=== PATIENT | female | born 1945 | race Caucasian/White ===

== ENCOUNTER 2018-08-18 01:57 | Inpatient (IN) | payer MEDICARE, OTHER ==
[2018-08-18] MEDS: NITROGLYCERIN 50 MG/D5W (PMX) 250 ML IV (02:19)
[2018-08-18 02:20] LABS: WHITE BLOOD COUNT 16.6 10^3/ul (4.8-10.8)
[2018-08-18 02:20] LABS: ADD MAN DIFF? NO; BASOPHIL # 0.1 10^3/ul (0.0-0.1); BASOPHILS % 0.3 % (0.0-2.0); EOSINOPHILS # 0.2 10^3/ul (0.0-0.5); EOSINOPHILS % 0.9 % (0.0-7.0); HEMATOCRIT 43.3 % (37.0-47.0); HEMOGLOBIN 13.6 g/dl (12.0-16.0); LYMPHOCYTES # 3.2 10^3/ul (0.8-2.9); LYMPHOCYTES % 19.2 % (15.0-51.0); MEAN CORPUSCULAR HEMOGLOBIN 25.7 pg (29.0-33.0); MEAN CORPUSCULAR HGB CONC 31.4 g/dl (32.0-37.0); MEAN CORPUSCULAR VOLUME 81.7 fl (82.0-101.0); MEAN PLATELET VOLUME 11.5 fl (7.4-10.4); MONOCYTE # 0.7 10^3/ul (0.3-0.9); MONOCYTES % 4.4 % (0.0-11.0); NEUTROPHIL # 12.4 10^3/ul (1.6-7.5); NEUTROPHILS % 74.7 % (39.0-77.0); PLATELET COUNT 264 10^3/UL (140-415); RED CELL DISTRIBUTION WIDTH 14.4 % (11.5-14.5)
[2018-08-18 02:37] LABS: ALANINE AMINOTRANSFERASE 24 IU/L (13-69); ALBUMIN 4.3 g/dl (3.3-4.9); ALBUMIN/GLOBULIN RATIO 1.34; ALKALINE PHOSPHATASE 107 IU/L (42-121); ANION GAP 11 (5-13); ASPARTATE AMINO TRANSFERASE 32 IU/L (15-46); BILIRUBIN,INDIRECT 0.6 mg/dl (0-1.1); BILIRUBIN,TOTAL 0.6 mg/dl (0.2-1.3); BLOOD UREA NITROGEN 13 mg/dl (7-20); CALCIUM 9.1 mg/dl (8.4-10.2); CARBON DIOXIDE 22 mmol/L (21-31); CHLORIDE 107 mmol/L (97-110); CREATININE 0.79 mg/dl (0.44-1.00); GLUCOSE 295 mg/dl (70-220); INR 0.97; PARTIAL THROMBOPLASTIN TIME 23.7 Sec (23.0-35.0); POTASSIUM 4.8 mmol/L (3.5-5.1); SODIUM 140 mmol/L (135-144); TOTAL PROTEIN 7.5 g/dl (6.1-8.1)
[2018-08-18 02:49] LABS: B-TYPE NATRIURETIC PEPTIDE 3960 PG/ML (0-125); TROPONIN-I < 0.012 ng/ml (0.000-0.120)
[2018-08-18] MEDS: DILTIAZEM 25 MG INJ IV ×2 (02:56→03:19)
[2018-08-18] MEDS ORDERED: ONDANSETRON 4 MG INJ IV (03:00)
[2018-08-18] MEDS ORDERED: ACETAMINOPHEN 650MG/20.3ML CUP PO (03:00)
[2018-08-18] MEDS: FUROSEMIDE 40 MG INJ IV ×3 (03:07→18:58)
[2018-08-18 03:11] LABS: Allen Test N; Arterial Base Excess -1.4 mmol/L (-3.0-3); Arterial Blood Gas Oxygen Sat 99.4 mmHG (95.0-100.0); Arterial COHb 0.3 % (0.0-3.0); Arterial Fraction of Oxyhgb 98.7 % (93.0-99.0); Arterial HCO3 22.8 mmol/L (22.0-26.0); Arterial MetHb 0.4 % (0.0-1.5); Arterial pCO2 36.9 mmhg (35-45); Blood Gas IEPAP 15/5; Blood Gas PS 10; MODE MASK - BIPAP; Site Right Brachial
[2018-08-18 04:28] LABS: FREE T4 (FREE THYROXINE) 1.13 ng/dl (0.78-2.44)
[2018-08-18 04:29] LABS: FREE T3 4.31 pg/ml (2.77-5.27)
[2018-08-18 06:12] LABS: LACTIC ACID 2.7 mmol/L (0.5-2.0)
[2018-08-18] MEDS: METOPROLOL 5 MG INJ IV (07:57)
[2018-08-18] MEDS: PANTOPRAZOLE 40 MG INJ IV (07:57)
[2018-08-18] MEDS: LISINOPRIL 10 MG TAB PO (08:55)
[2018-08-18 10:21] LABS: CREATINE KINASE 40 IU/L (23-200)
[2018-08-18 10:34] LABS: CK INDEX 2.7; CK-MB 1.06 ng/ml (0.0-2.4)
[2018-08-18 10:41] LABS: TROPONIN-I 0.145 ng/ml (0.000-0.120)
[2018-08-18] MEDS: ENOXAPARIN 80 MG/0.8 ML SYG SC ×2 (11:01→20:48)
[2018-08-18] MEDS: METOPROLOL 25 MG TAB PO ×2 (12:30→15:43)
[2018-08-18 14:56] LABS: CREATINE KINASE 45 IU/L (23-200)
[2018-08-18 15:10] LABS: CK INDEX 2.2; CK-MB 0.97 ng/ml (0.0-2.4)
[2018-08-18 15:18] LABS: TROPONIN-I 0.157 ng/ml (0.000-0.120)
[2018-08-18] MEDS: DIGOXIN 500 MCG INJ IV ×2 (15:45→18:58)
[2018-08-18] MEDS: METOPROLOL 50 MG TAB PO (20:46)
[2018-08-18 20:47] LABS: CREATINE KINASE 48 IU/L (23-200)
[2018-08-18 20:59] LABS: CK INDEX 2.3; CK-MB 1.12 ng/ml (0.0-2.4)
[2018-08-18 21:01] LABS: TROPONIN-I 0.133 ng/ml (0.000-0.120)
[2018-08-19 06:22] LABS: LACTIC ACID 1.1 mmol/L (0.5-2.0)
[2018-08-19] MEDS: PANTOPRAZOLE (EC) 40 MG TAB PO (06:27)
[2018-08-19] MEDS: FUROSEMIDE 40 MG INJ IV ×2 (06:28→17:04)
[2018-08-19] MEDS: LISINOPRIL 10 MG TAB PO (08:58)
[2018-08-19] MEDS: METOPROLOL 50 MG TAB PO (08:59)
[2018-08-19] MEDS: ENOXAPARIN 80 MG/0.8 ML SYG SC (09:09)
[2018-08-19] MEDS ORDERED: GLUCOSE GEL 15 GRAM TUBE BUCCAL (11:00)
[2018-08-19] MEDS ORDERED: GLUCAGON 1 MG INJ IM (11:00)
[2018-08-19] MEDS ORDERED: GLUCOSE GEL 15 GRAM TUBE PO ×2 (11:00)
[2018-08-19] MEDS ORDERED: DEXTROSE 50% 50 ML SYRINGE IV ×2 (11:00)
[2018-08-19] MEDS: INSULIN ASPART [NOVOLOG] 3 ML PEN SC ×3 (12:00→21:00)
[2018-08-19] MEDS: SOD CHLORIDE 0.9% 100 ML (12:06)
[2018-08-19] MEDS: IOHEXOL 300MG/ML 150 ML BTL (12:07)
[2018-08-19 12:40] LABS: IRON 36 ug/dl (35-150)
[2018-08-19 12:50] LABS: % IRON SATURATION 12 % SAT (22-52); TOTAL IRON BINDING CAPACITY 289 ug/dl (241-421)
[2018-08-19 13:30] LABS: HEPATITIS C VIRAL ANTIBODY NEGATIVE (NEGATIVE)
[2018-08-19] MEDS: ACCU-CHEK XX ×2 (14:00→21:24)
[2018-08-19 14:07] LABS: FERRITIN 82.5 ng/ml (11.1-264.0)
[2018-08-19] MEDS ORDERED: hydrALAzine 20 MG INJ IV (17:30)
[2018-08-19 18:10] LABS: HEPATITIS B SURFACE ANTIGEN NEGATIVE (NEGATIVE)
[2018-08-19] MEDS: DIGOXIN 500 MCG INJ IV ×2 (18:12→18:13)
[2018-08-19] MEDS: LISINOPRIL 20 MG TAB PO ×2 (18:13→21:05)
[2018-08-19] MEDS: FERROUS GLUCONATE (EC) 325 MG TAB PO (19:07)
[2018-08-19] MEDS: hydrALAzine 20 MG INJ IV (19:34)
[2018-08-19] MEDS ORDERED: LISINOPRIL 10 MG TAB PO (21:00)
[2018-08-19] MEDS: METOPROLOL (XL) 50 MG TAB PO (21:06)
[2018-08-20] MEDS: ACCU-CHEK XX ×4 (02:00→21:23)
[2018-08-20 06:51] LABS: ALANINE AMINOTRANSFERASE 22 IU/L (13-69); ALBUMIN 3.9 g/dl (3.3-4.9); ALKALINE PHOSPHATASE 100 IU/L (42-121); ANION GAP 9 (5-13); ASPARTATE AMINO TRANSFERASE 22 IU/L (15-46); BILIRUBIN,INDIRECT 0.5 mg/dl (0-1.1); BILIRUBIN,TOTAL 0.5 mg/dl (0.2-1.3); BLOOD UREA NITROGEN 25 mg/dl (7-20); CALCIUM 9.7 mg/dl (8.4-10.2); CARBON DIOXIDE 31 mmol/L (21-31); CHLORIDE 105 mmol/L (97-110); CREATININE 0.76 mg/dl (0.44-1.00); GLUCOSE 122 mg/dl (70-220); POTASSIUM 3.3 mmol/L (3.5-5.1); SODIUM 145 mmol/L (135-144); TOTAL PROTEIN 6.9 g/dl (6.1-8.1)
[2018-08-20] MEDS: FUROSEMIDE 40 MG INJ IV ×2 (07:01→18:37)
[2018-08-20] MEDS: PANTOPRAZOLE (EC) 40 MG TAB PO (07:02)
[2018-08-20] MEDS: INSULIN ASPART [NOVOLOG] 3 ML PEN SC ×4 (08:00→21:00)
[2018-08-20] MEDS: SPIRONOLACTONE 25 MG TAB PO (08:57)
[2018-08-20] MEDS: LISINOPRIL 20 MG TAB PO ×3 (08:59→21:25)
[2018-08-20] MEDS: METOPROLOL (XL) 50 MG TAB PO (08:59)
[2018-08-20] MEDS: FERROUS GLUCONATE (EC) 325 MG TAB PO (08:59)
[2018-08-20] MEDS: hydrALAzine 20 MG INJ IV (12:08)
[2018-08-20] MEDS: DIGOXIN 0.125 MG TAB PO (13:26)
[2018-08-20] MEDS: METOPROLOL (XL) 25 MG TAB PO (13:26)
[2018-08-20] MEDS ORDERED: DILTIAZEM 25 MG INJ IV (13:30)
[2018-08-20] MEDS: POTASSIUM CHLORIDE (SR) 20 MEQ TAB PO (14:31)
[2018-08-20] MEDS ORDERED: METOPROLOL (XL) 25 MG TAB PO (21:00)
[2018-08-20] MEDS: METOPROLOL (XL) 100 MG TAB PO (21:24)
[2018-08-21] MEDS: ACCU-CHEK XX ×3 (02:00→14:00)
[2018-08-21] MEDS: FUROSEMIDE 40 MG INJ IV ×2 (05:50→18:06)
[2018-08-21] MEDS: PANTOPRAZOLE (EC) 40 MG TAB PO (05:50)
[2018-08-21 06:22] LABS: ANION GAP 10 (5-13); BLOOD UREA NITROGEN 30 mg/dl (7-20); CALCIUM 9.8 mg/dl (8.4-10.2); CARBON DIOXIDE 30 mmol/L (21-31); CHLORIDE 103 mmol/L (97-110); GLUCOSE 135 mg/dl (70-220); POTASSIUM 3.5 mmol/L (3.5-5.1); SODIUM 143 mmol/L (135-144)
[2018-08-21] MEDS: INSULIN ASPART [NOVOLOG] 3 ML PEN SC ×4 (08:00→21:00)
[2018-08-21] MEDS: FERROUS GLUCONATE (EC) 325 MG TAB PO (08:18)
[2018-08-21] MEDS: METOPROLOL (XL) 100 MG TAB PO ×2 (08:18→21:10)
[2018-08-21] MEDS: LISINOPRIL 20 MG TAB PO ×2 (08:18→21:09)
[2018-08-21] MEDS: ASPIRIN 81 MG TAB PO (08:19)
[2018-08-21] MEDS: SPIRONOLACTONE 25 MG TAB PO (08:19)
[2018-08-21] MEDS: DIGOXIN 0.125 MG TAB PO (12:17)
[2018-08-21] MEDS: POTASSIUM CHLORIDE 20 MEQ POWDER FOR ORAL SOLN PO (15:44)
[2018-08-21] MEDS: THIAMINE 100 MG TAB PO (15:44)
[2018-08-21] MEDS ORDERED: SALINE 0.65% 45 ML NAS SPRAY NASAL (16:00)
[2018-08-22] MEDS: ACCU-CHEK XX (02:00)
[2018-08-22 05:27] LABS: ADD MAN DIFF? NO
[2018-08-22 05:34] LABS: WHITE BLOOD COUNT 7.4 10^3/ul (4.8-10.8)
[2018-08-22 05:34] LABS: BASOPHILS % 0.5 % (0.0-2.0); EOSINOPHILS # 0.2 10^3/ul (0.0-0.5); EOSINOPHILS % 2.4 % (0.0-7.0); HEMOGLOBIN 13.9 g/dl (12.0-16.0); LYMPHOCYTES # 2.2 10^3/ul (0.8-2.9); LYMPHOCYTES % 29.2 % (15.0-51.0); MEAN CORPUSCULAR HEMOGLOBIN 25.7 pg (29.0-33.0); MEAN CORPUSCULAR HGB CONC 33.1 g/dl (32.0-37.0); MEAN CORPUSCULAR VOLUME 77.6 fl (82.0-101.0); MEAN PLATELET VOLUME 11.9 fl (7.4-10.4); MONOCYTE # 0.7 10^3/ul (0.3-0.9); MONOCYTES % 9.1 % (0.0-11.0); NEUTROPHIL # 4.3 10^3/ul (1.6-7.5); NEUTROPHILS % 58.4 % (39.0-77.0); PLATELET COUNT 219 10^3/UL (140-415); RED BLOOD COUNT 5.41 10^6/ul (4.20-5.40); RED CELL DISTRIBUTION WIDTH 14.7 % (11.5-14.5)
[2018-08-22 05:48] LABS: HEMOGLOBIN A1C 5.7 % (0-5.9)
[2018-08-22] MEDS: FUROSEMIDE 40 MG INJ IV (05:50)
[2018-08-22 06:09] LABS: ALANINE AMINOTRANSFERASE 38 IU/L (13-69); ALBUMIN 4.3 g/dl (3.3-4.9); ALBUMIN/GLOBULIN RATIO 1.59; ALKALINE PHOSPHATASE 91 IU/L (42-121); ANION GAP 13 (5-13); ASPARTATE AMINO TRANSFERASE 37 IU/L (15-46); BILIRUBIN,INDIRECT 0.4 mg/dl (0-1.1); BILIRUBIN,TOTAL 0.4 mg/dl (0.2-1.3); BLOOD UREA NITROGEN 35 mg/dl (7-20); CALCIUM 9.9 mg/dl (8.4-10.2); CARBON DIOXIDE 28 mmol/L (21-31); CHLORIDE 103 mmol/L (97-110); CREATININE 0.89 mg/dl (0.44-1.00); GLUCOSE 135 mg/dl (70-220); MAGNESIUM 2.1 mg/dl (1.7-2.5); POTASSIUM 4.1 mmol/L (3.5-5.1); SODIUM 144 mmol/L (135-144)
[2018-08-22] MEDS: INSULIN ASPART [NOVOLOG] 3 ML PEN SC ×3 (08:00→17:41)
[2018-08-22] MEDS: SPIRONOLACTONE 25 MG TAB PO (08:54)
[2018-08-22] MEDS: FERROUS GLUCONATE (EC) 325 MG TAB PO (08:55)
[2018-08-22] MEDS: THIAMINE 100 MG TAB PO (08:55)
[2018-08-22] MEDS: LISINOPRIL 20 MG TAB PO (08:55)
[2018-08-22] MEDS: ASPIRIN 81 MG TAB PO (08:55)
[2018-08-22] MEDS: METOPROLOL (XL) 100 MG TAB PO (08:55)
[2018-08-22] MEDS: POTASSIUM CHLORIDE 20 MEQ POWDER FOR ORAL SOLN PO (08:56)
[2018-08-22] MEDS: DIGOXIN 0.125 MG TAB PO (14:25)
[2018-08-22] MEDS: FUROSEMIDE 20 MG TAB PO (17:42)
[2018-08-23] MEDS ORDERED: ENOXAPARIN 80 MG/0.8 ML SYG SC (09:00)
[2018-08-24 09:37] LABS: NIL 0.06 IU/mL; QUANTIFERON(R)-TB GOLD NEGATIVE (NEGATIVE); TB-NIL <0.00 IU/mL; TB2-NIL <0.00 IU/mL
== END 2018-08-22 18:34 | disposition home or self-care (01) | DRG 308 ==
LOC: E/R 01:57 → ICU 03:00 → 6WM 21:15
DX: I48.91 Unspecified atrial fibrillation (principal); J96.01 Acute respiratory failure with hypoxia; I50.43 Acute on chronic combined systolic (congestive) and diastolic (congestive) heart failure; E87.2 Acidosis; R04.2 Hemoptysis; I24.9 Acute ischemic heart disease, unspecified; I48.92 Unspecified atrial flutter; I11.0 Hypertensive heart disease with heart failure; I42.9 Cardiomyopathy, unspecified; I16.0 Hypertensive urgency; E55.9 Vitamin D deficiency, unspecified; E78.5 Hyperlipidemia, unspecified; I25.2 Old myocardial infarction; S42.295D Other nondisplaced fracture of upper end of left humerus, subsequent encounter for fracture with routine healing; S42.294D Other nondisplaced fracture of upper end of right humerus, subsequent encounter for fracture with routine healing; D50.0 Iron deficiency anemia secondary to blood loss (chronic); E03.9 Hypothyroidism, unspecified; E04.1 Nontoxic single thyroid nodule
CPT/HCPCS: 36600; 71045; 71260; 76536; 80048; 80053; 80162; 82550; 82553; 82728; 82803; 82962; 83036; 83540; 83605; 83735; 83880; 84439; 84443; 84481; 84484; 85025; 85610; 85730; 86480; 86803; 87040; 87081; 87116; 87340; 93005; 93306; 94660

== ENCOUNTER 2018-11-28 07:53 | Inpatient (IN) | payer MEDICARE, OTHER ==
[2018-11-28 08:34] LABS: ADD MAN DIFF? NO
[2018-11-28 08:46] LABS: BASOPHILS % 0.3 % (0.0-2.0); EOSINOPHILS % 0.1 % (0.0-7.0); HEMATOCRIT 41.6 % (37.0-47.0); HEMOGLOBIN 13.7 g/dl (12.0-16.0); LYMPHOCYTES # 0.8 10^3/ul (0.8-2.9); LYMPHOCYTES % 7.7 % (15.0-51.0); MEAN CORPUSCULAR HEMOGLOBIN 25.5 pg (29.0-33.0); MEAN CORPUSCULAR HGB CONC 32.9 g/dl (32.0-37.0); MEAN CORPUSCULAR VOLUME 77.5 fl (82.0-101.0); MONOCYTE # 0.5 10^3/ul (0.3-0.9); MONOCYTES % 5.2 % (0.0-11.0); NEUTROPHILS % 86.1 % (39.0-77.0); PLATELET COUNT 193 10^3/UL (140-415); RED BLOOD COUNT 5.37 10^6/ul (4.20-5.40); RED CELL DISTRIBUTION WIDTH 14.4 % (11.5-14.5)
[2018-11-28 08:46] LABS: WHITE BLOOD COUNT 10.5 10^3/ul (4.8-10.8)
[2018-11-28 08:55] LABS: ALANINE AMINOTRANSFERASE 23 IU/L (13-69); ALBUMIN 4.7 g/dl (3.3-4.9); ALBUMIN/GLOBULIN RATIO 1.42; ALKALINE PHOSPHATASE 121 IU/L (42-121); ANION GAP 12 (5-13); ASPARTATE AMINO TRANSFERASE 39 IU/L (15-46); BILIRUBIN,INDIRECT 0.6 mg/dl (0-1.1); BILIRUBIN,TOTAL 0.6 mg/dl (0.2-1.3); BLOOD UREA NITROGEN 21 mg/dl (7-20); CALCIUM 9.9 mg/dl (8.4-10.2); CARBON DIOXIDE 28 mmol/L (21-31); CHLORIDE 102 mmol/L (97-110); CREATINE KINASE 1044 IU/L (23-200); CREATININE 0.63 mg/dl (0.44-1.00); GLUCOSE 175 mg/dl (70-220); SODIUM 142 mmol/L (135-144)
[2018-11-28] MEDS: SOD CHLORIDE 0.9% 1,000 ML IV (09:05)
[2018-11-28 09:07] LABS: TROPONIN-I < 0.012 ng/ml (0.000-0.120)
[2018-11-28 09:11] LABS: FREE THYROXINE INDEX (Calc) 2.73 ug/ml (0.65-3.89); T3 UPTAKE 29.4 % (23.5-40.5); T4 (THYROXINE) 9.3 ug/dl (5.5-11.0)
[2018-11-28] MEDS: POTASSIUM CHLORIDE (SR) 20 MEQ TAB PO (10:02)
[2018-11-28 10:19] LABS: ADD UMIC YES; UR ASCORBIC ACID NEGATIVE (NEGATIVE); UR BACTERIA FEW /HPF (NONE SEEN); UR BILIRUBIN (Dip) NEGATIVE (NEGATIVE); UR BLOOD (Dip) 1+ mg/dL (NEGATIVE); UR CLARITY SLIGHTLY CLOUDY (CLEAR); UR COLOR YELLOW (YELLOW); UR GLUCOSE (Dip) NEGATIVE (NEGATIVE); UR KETONES (Dip) 1+ mg/dL (NEGATIVE); UR LEUKOCYTE ESTERASE (Dip) TRACE Leu/ul (NEGATIVE); UR NITRITE (Dip) NEGATIVE (NEGATIVE); UR RBC 1 /HPF (0-5); UR SPECIFIC GRAVITY (Dip) 1.011 (1.003-1.030); UR TOTAL PROTEIN (Dip) NEGATIVE (NEGATIVE); UR UROBILINOGEN (Dip) NEGATIVE (NEGATIVE); UR WBC 5 /HPF (0-5)
[2018-11-28] MEDS ORDERED: ONDANSETRON 4 MG INJ IV ×2 (10:30→15:00)
[2018-11-28] MEDS ORDERED: ACETAMINOPHEN 325 MG TAB PO (10:30)
[2018-11-28] MEDS ORDERED: ZOLPIDEM 5 MG TAB PO (15:00)
[2018-11-28 16:29] LABS: CREATINE KINASE 870 IU/L (23-200)
[2018-11-28 16:35] LABS: PHOSPHORUS 3.1 mg/dl (2.5-4.9)
[2018-11-28 16:35] LABS: MAGNESIUM 1.8 mg/dl (1.7-2.5)
[2018-11-28 16:42] LABS: CK INDEX 0.4; CK-MB 3.14 ng/ml (0.0-2.4); TROPONIN-I < 0.012 ng/ml (0.000-0.120)
[2018-11-28 17:13] LABS: DIGOXIN < 0.4 ng/ml (1.0-2.0)
[2018-11-28] MEDS: POTASSIUM CHLORIDE 100 ML IVPB (18:00)
[2018-11-28] MEDS: ACETAMINOPHEN 325 MG TAB PO (18:16)
[2018-11-28 21:04] LABS: CREATINE KINASE 691 IU/L (23-200)
[2018-11-28] MEDS: ATORVASTATIN 20 MG TAB PO (22:03)
[2018-11-28] MEDS: DOCUSATE SODIUM 100 MG CAP PO (22:03)
[2018-11-28] MEDS: APIXABAN 5 MG TABLET PO (22:04)
[2018-11-28] MEDS: DICLOFENAC SODIUM 1% GEL 100 GM TUBE TP (22:04)
[2018-11-28 22:07] LABS: CK INDEX 0.3; CK-MB 1.96 ng/ml (0.0-2.4); TROPONIN-I < 0.012 ng/ml (0.000-0.120)
[2018-11-29] MEDS: POTASSIUM CHLORIDE 100 ML IVPB (02:43)
[2018-11-29] MEDS ORDERED: PANTOPRAZOLE (EC) 40 MG TAB PO (04:19)
[2018-11-29] MEDS: PANTOPRAZOLE (EC) 40 MG TAB PO (06:52)
[2018-11-29 07:48] LABS: ADD MAN DIFF? NO
[2018-11-29 07:54] LABS: WHITE BLOOD COUNT 5.5 10^3/ul (4.8-10.8)
[2018-11-29 07:54] LABS: BASOPHILS % 0.4 % (0.0-2.0); EOSINOPHILS # 0.1 10^3/ul (0.0-0.5); EOSINOPHILS % 2.5 % (0.0-7.0); HEMATOCRIT 40.7 % (37.0-47.0); LYMPHOCYTES # 1.7 10^3/ul (0.8-2.9); LYMPHOCYTES % 31.3 % (15.0-51.0); MEAN CORPUSCULAR HEMOGLOBIN 25.3 pg (29.0-33.0); MEAN CORPUSCULAR HGB CONC 31.9 g/dl (32.0-37.0); MEAN CORPUSCULAR VOLUME 79.2 fl (82.0-101.0); MEAN PLATELET VOLUME 11.7 fl (7.4-10.4); MONOCYTE # 0.5 10^3/ul (0.3-0.9); MONOCYTES % 9.4 % (0.0-11.0); NEUTROPHIL # 3.1 10^3/ul (1.6-7.5); PLATELET COUNT 189 10^3/UL (140-415); RED BLOOD COUNT 5.14 10^6/ul (4.20-5.40); RED CELL DISTRIBUTION WIDTH 14.4 % (11.5-14.5)
[2018-11-29 08:18] LABS: ALANINE AMINOTRANSFERASE 19 IU/L (13-69); ALKALINE PHOSPHATASE 98 IU/L (42-121); ANION GAP 10 (5-13); ASPARTATE AMINO TRANSFERASE 34 IU/L (15-46); BILIRUBIN,INDIRECT 0.7 mg/dl (0-1.1); BILIRUBIN,TOTAL 0.7 mg/dl (0.2-1.3); BLOOD UREA NITROGEN 17 mg/dl (7-20); CALCIUM 9.1 mg/dl (8.4-10.2); CARBON DIOXIDE 26 mmol/L (21-31); CHLORIDE 106 mmol/L (97-110); CHOL/HDL RATIO 5.2 RATIO; CHOLESTEROL 201 mg/dl (100-200); GLUCOSE 131 mg/dl (70-220); HDL CHOLESTEROL 38 mg/dl (33-92); LDL CHOLESTEROL,CALCULATED 120 mg/dl; MAGNESIUM 1.9 mg/dl (1.7-2.5); POTASSIUM 3.2 mmol/L (3.5-5.1); SODIUM 142 mmol/L (135-144); TRIGLYCERIDES 213 mg/dl (0-149)
[2018-11-29] MEDS: SOLIFENACIN 5 MG TAB PO (08:31)
[2018-11-29] MEDS: DICLOFENAC SODIUM 1% GEL 100 GM TUBE TP ×4 (08:31→21:00)
[2018-11-29] MEDS: FUROSEMIDE 20 MG TAB PO (08:32)
[2018-11-29] MEDS: LOSARTAN 50 MG TAB PO (08:32)
[2018-11-29] MEDS: APIXABAN 5 MG TABLET PO ×2 (08:32→21:34)
[2018-11-29] MEDS: HYDROCODONE/APAP (5/325) TAB PO ×2 (08:33→13:10)
[2018-11-29] MEDS: HYDROCHLOROTHIAZIDE 25 MG TAB PO (08:33)
[2018-11-29] MEDS: SPIRONOLACTONE 25 MG TAB PO (08:33)
[2018-11-29] MEDS: AMLODIPINE 10 MG TAB PO (08:33)
[2018-11-29] MEDS: DOCUSATE SODIUM 100 MG CAP PO ×2 (08:33→21:34)
[2018-11-29] MEDS: METOPROLOL (XL) 100 MG TAB PO (08:34)
[2018-11-29 08:48] LABS: ALBUMIN/GLOBULIN RATIO 1.33
[2018-11-29] MEDS ORDERED: NON-FORMULARY/PATIENT OWN MED (Olmesartan-Amlodipine-HCTZ (Tribenzor) 1 TAB) PO (09:00)
[2018-11-29] MEDS: DIGOXIN 0.125 MG TAB PO (13:09)
[2018-11-29] MEDS: SOD CHLORIDE 0.45% 1,000 ML IV (13:17)
[2018-11-29] MEDS: ATORVASTATIN 20 MG TAB PO (21:34)
[2018-11-29] MEDS: CIPROFLOXACIN 250 MG TAB PO (21:39)
[2018-11-30] MEDS: PANTOPRAZOLE (EC) 40 MG TAB PO (06:12)
[2018-11-30] MEDS: CIPROFLOXACIN 250 MG TAB PO ×2 (06:12→17:28)
[2018-11-30 06:17] LABS: ADD MAN DIFF? NO
[2018-11-30 06:27] LABS: WHITE BLOOD COUNT 8.9 10^3/ul (4.8-10.8)
[2018-11-30 06:28] LABS: BASOPHILS % 0.4 % (0.0-2.0); EOSINOPHILS # 0.2 10^3/ul (0.0-0.5); EOSINOPHILS % 2.4 % (0.0-7.0); HEMATOCRIT 42.9 % (37.0-47.0); LYMPHOCYTES # 2.3 10^3/ul (0.8-2.9); LYMPHOCYTES % 25.8 % (15.0-51.0); MEAN CORPUSCULAR HEMOGLOBIN 25.4 pg (29.0-33.0); MEAN CORPUSCULAR HGB CONC 32.6 g/dl (32.0-37.0); MEAN CORPUSCULAR VOLUME 77.7 fl (82.0-101.0); MEAN PLATELET VOLUME 11.3 fl (7.4-10.4); MONOCYTE # 0.8 10^3/ul (0.3-0.9); MONOCYTES % 9.4 % (0.0-11.0); NEUTROPHIL # 5.5 10^3/ul (1.6-7.5); NEUTROPHILS % 61.3 % (39.0-77.0); PLATELET COUNT 207 10^3/UL (140-415); RED BLOOD COUNT 5.52 10^6/ul (4.20-5.40); RED CELL DISTRIBUTION WIDTH 14.6 % (11.5-14.5)
[2018-11-30 06:41] LABS: ANION GAP 9 (5-13); BLOOD UREA NITROGEN 22 mg/dl (7-20); CALCIUM 9.8 mg/dl (8.4-10.2); CARBON DIOXIDE 26 mmol/L (21-31); CHLORIDE 104 mmol/L (97-110); CREATININE 0.64 mg/dl (0.44-1.00); GLUCOSE 125 mg/dl (70-220); POTASSIUM 3.6 mmol/L (3.5-5.1); SODIUM 139 mmol/L (135-144)
[2018-11-30 06:45] LABS: CREATINE KINASE 427 IU/L (23-200)
[2018-11-30 06:47] LABS: PHOSPHORUS 4.4 mg/dl (2.5-4.9)
[2018-11-30 06:47] LABS: MAGNESIUM 1.7 mg/dl (1.7-2.5)
[2018-11-30] MEDS: FUROSEMIDE 20 MG TAB PO (09:13)
[2018-11-30] MEDS: DOCUSATE SODIUM 100 MG CAP PO ×2 (09:13→20:15)
[2018-11-30] MEDS: SOLIFENACIN 5 MG TAB PO (09:13)
[2018-11-30] MEDS: LOSARTAN 50 MG TAB PO (09:13)
[2018-11-30] MEDS: AMLODIPINE 10 MG TAB PO (09:14)
[2018-11-30] MEDS: APIXABAN 5 MG TABLET PO ×2 (09:14→20:15)
[2018-11-30] MEDS: HYDROCHLOROTHIAZIDE 25 MG TAB PO (09:14)
[2018-11-30] MEDS: HYDROCODONE/APAP (5/325) TAB PO (09:14)
[2018-11-30] MEDS: SPIRONOLACTONE 25 MG TAB PO (09:14)
[2018-11-30] MEDS: METOPROLOL (XL) 100 MG TAB PO (09:15)
[2018-11-30] MEDS: DICLOFENAC SODIUM 1% GEL 100 GM TUBE TP ×4 (09:16→20:20)
[2018-11-30] MEDS: DIGOXIN 0.125 MG TAB PO (13:46)
[2018-11-30] MEDS: ATORVASTATIN 20 MG TAB PO (20:15)
[2018-12-04] MEDS ORDERED: ERGOCALCIFEROL 50,000 UNIT CAP PO (09:00)
== END 2018-11-30 20:55 | disposition home or self-care (01) | DRG 558 ==
LOC: PP2 14:36 → E/R 07:53 → PP2 10:05
DX: M62.82 Rhabdomyolysis (principal); N39.0 Urinary tract infection, site not specified; I48.0 Paroxysmal atrial fibrillation; I50.9 Heart failure, unspecified; Z60.2 Problems related to living alone; I11.0 Hypertensive heart disease with heart failure; Z86.73 Personal history of transient ischemic attack (TIA), and cerebral infarction without residual deficits; D50.8 Other iron deficiency anemias; M79.671 Pain in right foot; E87.6 Hypokalemia
CPT/HCPCS: 36415; 70450; 71045; 73620; 80048; 80053; 80061; 80162; 81001; 82550; 82553; 83735; 84100; 84436; 84443; 84479; 84484; 85025; 87086; 93005; 93880; 97161; 99285-25